=== PATIENT | female | born 1975 | race Caucasian/White ===

== ENCOUNTER → 2019-07-21 | Outpatient (CLI) | payer OTHER ==
[~2019-07-21] MED LIST: DIATRIZOATE MEGL/DIATRIZOA SOD 30 ML BTL PO ONE; IOPAMIDOL 370 MG/ML 200 ML INFUS..BTL INJ ONE; SODIUM CHLORIDE 0.9% 50ML 50 ML ONE
--- NOTE | 2019-07-21 13:33 | Diagnostic Imaging Report ---
TECHNIQUE: CT of the abdomen and pelvis WITH intravenous contrast and WITH oral contrast. Dose modulation, iterative reconstruction, and/or weight-based adjustment of the mA/kV was utilized to reduce the radiation dose to as low as reasonably achievable. INDICATION: 43-year-old woman with left lower quadrant pain. COMPARISON: None. FINDINGS: LOWER THORAX: Mild dependent atelectasis in both lower lobes. HEPATOBILIARY: No focal hepatic lesions. Cholelithiasis in an otherwise unremarkable gallbladder. No biliary ductal dilatation. SPLEEN: No splenomegaly. PANCREAS: No focal masses or ductal dilatation. ADRENALS: No adrenal nodules. KIDNEYS/URETERS: No hydronephrosis or stones. Subcentimeter hypodensity in the right upper pole is too small to characterize, but is likely a cyst. PELVIC ORGANS/BLADDER: Unremarkable. PERITONEUM/RETROPERITONEUM: Trace free fluid in the pelvis. No free air. LYMPH NODES: Mildly prominent 1.2 cm left para-aortic retroperitoneal lymph node is nonspecific and likely reactive. VESSELS: Unremarkable. GI TRACT: Colonic diverticula with thickened wall and pericolonic edema in a long segment of the sigmoid which contains diverticula. No bowel obstruction. BONES AND SOFT TISSUES: Unremarkable. IMPRESSION: Uncomplicated acute sigmoid diverticulitis versus sigmoiditis. Cholelithiasis. Signed by: Roseanne Yung MD on 07/21/2019 1:29 PM
== END ==
LOC: CT 12:03
PROVIDERS: ATTEND Internal Medicine Gastroenterology
DX: R10.32 Left lower quadrant pain (principal)
CPT/HCPCS: 74177; 81025; Q9967

== ENCOUNTER → 2025-01-28 | Day surgery (SDC) | payer OTHER ==
[~2025-01-28] MED LIST changes: +BIOTIN2500 MC1; -DIATRIZOATE MEGL/DIATRIZOA SOD 30 ML BTL PO ONE; +FISH OIL 1,0001 EAC7; +GLUCAGON FOR INJ 1 MG VIAL ONE; +HYOSCYAMINE SULFATE 0.5 MG/ML INJ ONE; -IOPAMIDOL 370 MG/ML 200 ML INFUS..BTL INJ ONE; +LIDOCAINE HCL 2% LOCAL INJ 5 ML SDV VIAL INJ ONE; +MAGNESIUM; +MULTI-VITAMIN1 EACH PO; +NEXIUM20 MG PO; +PROBIOTIC & AC1 EACH PO; +PROPOFOL IV EMULSION 50 ML IV ONE; -SODIUM CHLORIDE 0.9% 50ML 50 ML ONE
[2025-01-28 15:17] VITALS: TEMP 99.1
[2025-01-28 15:45] VITALS: BP 100/65; PULSE 59; RESP 16; O2SAT 96
== END | disposition home or self-care (01) ==
LOC: OR 11:45
PROVIDERS: ATTEND Internal Medicine Gastroenterology
DX: Z12.11 Encounter for screening for malignant neoplasm of colon (principal); K57.30 Diverticulosis of large intestine without perforation or abscess without bleeding; K59.09 Other constipation; K64.8 Other hemorrhoids; K29.60 Other gastritis without bleeding; K21.9 Gastro-esophageal reflux disease without esophagitis; Z87.19 Personal history of other diseases of the digestive system; R00.1 Bradycardia, unspecified; Z88.0 Allergy status to penicillin; Z88.8 Allergy status to other drugs, medicaments and biological substances; Z01.810 Encounter for preprocedural cardiovascular examination; Z68.26 Body mass index [BMI] 26.0-26.9, adult; Z71.3 Dietary counseling and surveillance; Z80.0 Family history of malignant neoplasm of digestive organs
CPT/HCPCS: 45378; 81025; 93005; J1610; J1980; J2003; J2704